=== PATIENT | female | born 1990 | race Caucasian/White ===

== ENCOUNTER 2023-07-09 10:49 | Day surgery (SDC) | payer BC ==
[~2023-07-09] VITALS: Ht 167.6 cm; Wt 58.5 kg
[2023-07-09] MEDS ORDERED: FLUO10 PO (11:08)
--- NOTE | 2023-07-09 11:13 | NUR ---
07/09/23 [place]ana [place] CALL LIGHT WITHIN REACH.
--- NOTE | 2023-07-09 15:01 | NUR ---
07/09/[address] IN AT 1441 AND OUT AT [address] IQBAL'S REQUEST. PER DR FLORES, HE PERFORMED A DIAGNOSTIC LAPAROSCOPY.
[2023-07-09 16:26] VITALS: BP 109/67
--- NOTE | 2023-07-09 17:04 | NUR ---
07/09/[address] CAME IN AND EXPLAINED THE SURGERY TO PT PRIOR TO DC
== END 2023-07-09 17:02 | disposition home or self-care (01) ==
LOC: ORSCSDS 10:49
PROVIDERS: Obstetrics & Gynecology
PROC: 0UPD7HZ Removal of Contraceptive Device from Uterus and Cervix, Via Natural or Artificial Opening (ICD-10-PCS; principal; 2023-07-09 12:30)
PROC: 0UT74ZZ Resection of Bilateral Fallopian Tubes, Percutaneous Endoscopic Approach (ICD-10-PCS; principal; 2023-07-09 12:30)
DX: Z30.2 Encounter for sterilization (principal); Z30.432 Encounter for removal of intrauterine contraceptive device
CPT/HCPCS: 88302; A9270; J1100; J1885; J2250; J2405; J2704; J3010; J7120

== ENCOUNTER → 2024-05-22 | Outpatient (CLI) | payer SELFPAY ==
[~2024-05-22] MED LIST: FLUO10 PO
[2024-06-01 07:19] LABS: HPV HIGH RISK BY TMA Not Detected; HPV SOURCE Cervical
== END ==
LOC: LAB SHORT 15:38 → LAB 15:38
PROVIDERS: Obstetrics & Gynecology
DX: Z01.419 Encounter for gynecological examination (general) (routine) without abnormal findings (principal)
CPT/HCPCS: 87624; G0123